=== PATIENT | female | born 1930 | race Caucasian/White ===

== ENCOUNTER 2019-07-30 08:14 | Inpatient (IN) | payer OTHER ==
[~2019-07-30] VITALS: Ht 152.4 cm; Wt 55.0 kg
[~2019-07-30 08:14] MED LIST: APIX2.5T ORAL; ASPI-831 PO; ATOR40TA68 ORAL; BENA10TA4 PO; BENA5TAB33 PO; CEPH500C PO; DONE10TA7 ORAL; FURO-109 PO; FURO40TA4 PO; LEVO250T9 PO; MEMA5TAB14 ORAL; METO10TA92 PO; MIRT7.5T8 ORAL; NIF150 PO; POTA20TA96 PO; TRAM50TA2 PO
[2019-07-30] MEDS ORDERED: NITROGLYCERIN (SL) 0.4 MG TAB SL PRN (08:30)
[2019-07-30] MEDS: NITROGLYCERIN 2% 1 GM OINT PKT TD STA (08:40)
[2019-07-30] MEDS ORDERED: ACETAMINOPHEN 325 MG TAB PO PRN ×2 (11:00→15:00)
[2019-07-30] MEDS ORDERED: ONDANSETRON 4 MG INJ IV PRN ×2 (11:00→15:00)
[2019-07-30] MEDS ORDERED: FUROSEMIDE 20 MG INJ IV ONE (11:00)
[2019-07-30 12:24] VITALS: BP 157/83; PULSE 80; RESP 18
[2019-07-30 12:25] VITALS: Ht 152.4 cm; Wt 55.0 kg
[2019-07-30] MEDS ORDERED: NACL 0.9% 3 ML SYG IV SCH (15:00)
[2019-07-30] MEDS ORDERED: HYDROCODONE/APAP (5/325) TAB PO PRN (15:00)
[2019-07-30 16:11] VITALS: BP 132/70; PULSE 89; RESP 18
[2019-07-30 20:00] VITALS: BP 113/72; PULSE 94; RESP 18
[2019-07-30] MEDS: APIXABAN 5 MG TABLET PO SCH (20:50)
[2019-07-30] MEDS: ATORVASTATIN 40 MG TAB PO SCH (20:51)
[2019-07-30] MEDS: BENAZEPRIL 10 MG TAB PO SCH (20:51)
[2019-07-31] VITALS: BP 110/64; PULSE 80; RESP 17
[2019-07-31 03:44] VITALS: BP 101/67; PULSE 85; RESP 20
[2019-07-31] MEDS: PANTOPRAZOLE (EC) 40 MG TAB PO SCH (05:33)
[2019-07-31 07:28] VITALS: BP 111/72; PULSE 90; RESP 17
[2019-07-31] MEDS ORDERED: NITROGLYCERIN 2% 1 GM OINT PKT ONE (08:37)
[2019-07-31] MEDS: BENAZEPRIL 10 MG TAB PO SCH ×2 (08:45→21:00)
[2019-07-31] MEDS: ASPIRIN 81 MG TAB PO SCH (08:45)
[2019-07-31] MEDS: APIXABAN 5 MG TABLET PO SCH ×2 (08:45→21:18)
[2019-07-31] MEDS: NITROGLYCERIN 2% 1 GM OINT PKT TD STA (08:46)
[2019-07-31] MEDS ORDERED: FUROSEMIDE 20 MG INJ IV SCH (09:00)
[2019-07-31] MEDS ORDERED: FUROSEMIDE 20 MG INJ ONE (11:13)
[2019-07-31] MEDS ORDERED: ZOLPIDEM 5 MG TAB PO PRN (12:00)
[2019-07-31] MEDS ORDERED: REGADENOSON 0.4 MG/5 ML SYG ONE (13:37)
[2019-07-31 15:40] VITALS: BP 106/65; PULSE 90; RESP 17
[2019-07-31 20:00] VITALS: BP 101/61; PULSE 94; RESP 18
[2019-07-31] MEDS: ATORVASTATIN 40 MG TAB PO SCH (21:18)
[2019-08-01] VITALS (7 sets, daily range): BP systolic 91–109; BP diastolic 52–68; PULSE 71–87; RESP 19–20
[2019-08-01] MEDS: PANTOPRAZOLE (EC) 40 MG TAB PO SCH (05:39)
[2019-08-01] MEDS: BENAZEPRIL 10 MG TAB PO SCH ×2 (08:26→20:30)
[2019-08-01] MEDS: ASPIRIN 81 MG TAB PO SCH (08:26)
[2019-08-01] MEDS: APIXABAN 5 MG TABLET PO SCH ×2 (08:26→20:41)
[2019-08-01] MEDS: FUROSEMIDE 40 MG INJ IV SCH ×2 (08:27→20:41)
[2019-08-01] MEDS ORDERED: FUROSEMIDE 40 MG INJ IV SCH (09:00)
[2019-08-01] MEDS ORDERED: LEVOFLOXACIN 500MG/D5W (PMX) 100 ML IVPB SCH (11:00)
[2019-08-01] MEDS: ATORVASTATIN 40 MG TAB PO SCH (20:41)
[2019-08-02 03:42] VITALS: BP 103/60; PULSE 85; RESP 20
[2019-08-02] MEDS: PANTOPRAZOLE (EC) 40 MG TAB PO SCH (06:09)
[2019-08-02 07:23] VITALS: BP 100/67; PULSE 86; RESP 20
[2019-08-02] MEDS: BENAZEPRIL 10 MG TAB PO SCH ×2 (08:10→20:06)
[2019-08-02] MEDS: FUROSEMIDE 40 MG INJ IV SCH (08:10)
[2019-08-02] MEDS: APIXABAN 5 MG TABLET PO SCH ×2 (08:10→21:25)
[2019-08-02] MEDS: ASPIRIN 81 MG TAB PO SCH (08:10)
[2019-08-02] MEDS: LEVOFLOXACIN 250MG/D5W (PMX) 50 ML IVPB SCH (10:58)
[2019-08-02 11:13] VITALS: BP 101/67; PULSE 85; RESP 20
[2019-08-02] MEDS: POLYSACCHARIDE IRON COMPLEX CAP PO SCH ×2 (15:32→21:25)
[2019-08-02 15:37] VITALS: BP 97/62; PULSE 87; RESP 20
[2019-08-02] MEDS: FUROSEMIDE 40 MG TAB PO SCH (17:44)
[2019-08-02 19:24] VITALS: BP 102/67; PULSE 83; RESP 20
[2019-08-02] MEDS: ATORVASTATIN 40 MG TAB PO SCH (21:25)
[2019-08-02 23:06] VITALS: BP 109/66; PULSE 89; RESP 20
[2019-08-03 04:07] VITALS: BP 96/55; PULSE 69; RESP 20
[2019-08-03] MEDS: PANTOPRAZOLE (EC) 40 MG TAB PO SCH (05:40)
[2019-08-03] MEDS: FUROSEMIDE 40 MG TAB PO SCH (05:43)
[2019-08-03 07:24] VITALS: BP 85/54; PULSE 68; RESP 20
[2019-08-03] MEDS: BENAZEPRIL 10 MG TAB PO SCH (09:00)
[2019-08-03] MEDS: ASPIRIN 81 MG TAB PO SCH (09:48)
[2019-08-03] MEDS: POLYSACCHARIDE IRON COMPLEX CAP PO SCH ×2 (09:48→21:19)
[2019-08-03] MEDS: APIXABAN 5 MG TABLET PO SCH ×2 (09:49→21:19)
[2019-08-03 09:50] VITALS: BP 96/52
[2019-08-03 11:22] VITALS: BP 101/56; PULSE 68; RESP 20
[2019-08-03] MEDS: LEVOFLOXACIN 250MG/D5W (PMX) 50 ML IVPB SCH (12:02)
[2019-08-03 15:00] VITALS: BP 111/67; PULSE 69; RESP 20
[2019-08-03 20:41] VITALS: BP 106/72; PULSE 70; RESP 19
[2019-08-03] MEDS: ATORVASTATIN 40 MG TAB PO SCH (21:19)
[2019-08-04] VITALS: BP 113/52; PULSE 93; RESP 20
[2019-08-04 04:00] VITALS: BP 111/56; PULSE 18; RESP 18
[2019-08-04] MEDS: PANTOPRAZOLE (EC) 40 MG TAB PO SCH (05:24)
[2019-08-04 07:19] VITALS: BP 110/61; PULSE 64; RESP 20
[2019-08-04] MEDS ORDERED: FUROSEMIDE 40 MG TAB PO SCH (09:00)
[2019-08-04] MEDS ORDERED: BENAZEPRIL 10 MG TAB PO SCH (09:00)
[2019-08-04] MEDS ORDERED: POTASSIUM CHLORIDE (SR) 20 MEQ TAB PO STA (10:34)
[2019-08-04] MEDS: APIXABAN 5 MG TABLET PO SCH ×2 (10:50→21:48)
[2019-08-04] MEDS: ASPIRIN 81 MG TAB PO SCH (10:50)
[2019-08-04] MEDS: POLYSACCHARIDE IRON COMPLEX CAP PO SCH ×2 (10:50→21:48)
[2019-08-04] MEDS: LEVOFLOXACIN 250MG/D5W (PMX) 50 ML IVPB SCH (10:56)
[2019-08-04 11:12] VITALS: BP 93/54; PULSE 63; RESP 20
[2019-08-04 15:56] VITALS: BP 111/54; PULSE 93; RESP 20
[2019-08-04 20:00] VITALS: BP 91/52; PULSE 65; RESP 18
[2019-08-04] MEDS: ATORVASTATIN 40 MG TAB PO SCH (21:47)
[2019-08-05] VITALS: BP 103/53; PULSE 74; RESP 18
[2019-08-05 03:43] VITALS: BP 99/55; PULSE 56; RESP 18
[2019-08-05] MEDS: LEVOFLOXACIN 250 MG TAB PO SCH (06:17)
[2019-08-05] MEDS: PANTOPRAZOLE (EC) 40 MG TAB PO SCH (06:17)
[2019-08-05 07:31] VITALS: BP 101/55; PULSE 67; RESP 22
[2019-08-05] MEDS: APIXABAN 5 MG TABLET PO SCH ×2 (08:54→21:08)
[2019-08-05] MEDS: POLYSACCHARIDE IRON COMPLEX CAP PO SCH ×2 (08:54→21:08)
[2019-08-05] MEDS: ASPIRIN 81 MG TAB PO SCH (08:54)
[2019-08-05 11:34] VITALS: BP 99/58; PULSE 67; RESP 22
[2019-08-05 15:46] VITALS: BP 108/51; PULSE 64; RESP 22
[2019-08-05 20:00] VITALS: BP 108/55; PULSE 75; RESP 18
[2019-08-05] MEDS: ATORVASTATIN 40 MG TAB PO SCH (21:08)
[2019-08-06] VITALS: BP 107/54; PULSE 76; RESP 18
[2019-08-06 04:00] VITALS: BP 109/55; PULSE 63; RESP 18
[2019-08-06] MEDS: PANTOPRAZOLE (EC) 40 MG TAB PO SCH (06:27)
[2019-08-06] MEDS: LEVOFLOXACIN 250 MG TAB PO SCH (06:27)
[2019-08-06 07:38] VITALS: BP 93/52; PULSE 65; RESP 22
[2019-08-06] MEDS: POLYSACCHARIDE IRON COMPLEX CAP PO SCH (08:09)
[2019-08-06] MEDS: ASPIRIN 81 MG TAB PO SCH (08:09)
[2019-08-06] MEDS: APIXABAN 5 MG TABLET PO SCH (08:10)
[2019-08-06 11:27] VITALS: BP 111/59; PULSE 63
[2019-08-06 15:53] VITALS: BP 135/70; PULSE 76; RESP 20
== END 2019-08-06 18:05 | DRG 292 ==
LOC: E/R 08:14 → 6WM 10:38 → OBSVTOIN 07-31 07:42
PROVIDERS: ADMIT Internal Medicine; ATTEND Internal Medicine
DX: I11.0 Hypertensive heart disease with heart failure (principal); N39.0 Urinary tract infection, site not specified; N17.9 Acute kidney failure, unspecified; F03.90 Unspecified dementia, unspecified severity, without behavioral disturbance, psychotic disturbance, mood disturbance, and anxiety; D64.9 Anemia, unspecified; I45.10 Unspecified right bundle-branch block; I45.4 Nonspecific intraventricular block; I50.23 Acute on chronic systolic (congestive) heart failure; R07.9 Chest pain, unspecified; I25.10 Atherosclerotic heart disease of native coronary artery without angina pectoris; E78.5 Hyperlipidemia, unspecified; R09.02 Hypoxemia; Z79.4 Long term (current) use of insulin; Z79.02 Long term (current) use of antithrombotics/antiplatelets; Z95.0 Presence of cardiac pacemaker
CPT/HCPCS: 36415; 71045; 78452; 80048; 80053; 80061; 81001; 81003; 82550; 82553; 83036; 83540; 83735; 83880; 84100; 84300; 84484; 85025; 87086; 93005; 93017; 93306; 97162; G0378; A9500; A9505; J1940; J1956; J2405; J2785